=== PATIENT | female | born 1995 | race Caucasian/White ===

== ENCOUNTER 2020-07-16 14:49 | Emergency (ER) | payer BC ==
[~2020-07-16] VITALS: Ht 175.3 cm; Wt 72.6 kg
[2020-07-16 15:05] VITALS: Ht 175.3 cm; Wt 72.6 kg
[2020-07-16 18:16] LABS: BASOPHIL % 0.1 % (0.2-1.3); PLATELET COUNT 255 x10^3mcL (179-408); RED CELL DISTRIBUTION WIDTH 12.8 % (12.3-17.7)
[2020-07-16 18:37] LABS: ALBUMIN 4.7 g/dL (3.4-5.0); ALKALINE PHOSPHATASE 73 U/L (46-116); ALT/SGPT 17 U/L (14-59); AST/SGOT 9 U/L (15-37); BILIRUBIN TOTAL 1.63 mg/dL (0.20-1.00); CALCIUM 9.3 mg/dL (8.5-10.1); CARBON DIOXIDE 24.3 mmol/L (21-32); CHLORIDE SERUM 99 mmol/L (98-107); CREATININE SERUM 0.8 mg/dL (0.6-1.0); GFR1 > 60 mL/min; GLUCOSE SERUM 103 mg/dL (74-106); LIPASE 136 IU/L (73-393); SODIUM SERUM 135 mmol/L (136-145)
[2020-07-16 18:38] LABS: TOTAL PROTEIN, SERUM 8.6 g/dL (6.4-8.2)
[2020-07-16 18:39] LABS: POTASSIUM SERUM 2.9 mmol/L (3.5-5.1)
[2020-07-17 03:11] VITALS: BP 126/59
== END 2020-07-17 03:47 | disposition home or self-care (01) ==
LOC: ED 14:49
PROVIDERS: Emergency Medicine
DX: U07.1 COVID-19 (principal); R10.13 Epigastric pain; R10.11 Right upper quadrant pain; R11.2 Nausea with vomiting, unspecified; R19.7 Diarrhea, unspecified
CPT/HCPCS: J1630; J2405; J2765; J3475; J3490; J7030; Q0162